=== PATIENT | male | born 1995 | race Caucasian/White ===

== ENCOUNTER 2020-11-05 22:16 | Emergency (ER) | payer OTHER ==
[~2020-11-05] VITALS: Ht 172.7 cm; Wt 49.9 kg
[2020-11-05 22:17] VITALS: BP_SYST 146
== END 2020-11-05 22:27 ==
LOC: SED 22:16
DX: Z02.83 Encounter for blood-alcohol and blood-drug test (principal)
CPT/HCPCS: 99283